=== PATIENT | male | born 1985 | race Caucasian/White ===

== ENCOUNTER 2019-08-24 12:21 | Emergency (ER) | payer OTHER ==
[~2019-08-24] VITALS: Ht 180.3 cm; Wt 90.7 kg
[~2019-08-24 12:21] MED LIST: ALLERGEN EAR DR15 M1 OT; BACTRIM DS TAB1 EACH PO; HYDROCODONE-APA1 TA1 PO; KEFLEX500 MG PO; NOHOMEMEDICATIONS; NORCO 5-325 TA1 EAC1 PO; PREVACID PO
[2019-08-24 13:40] LABS: INFLUENZA A ANTIGEN Negative (Negative); INFLUENZA B ANTIGEN Negative (Negative)
[2019-08-24 13:55] VITALS: BP 142/70
== END 2019-08-24 13:56 | disposition home or self-care (01) ==
LOC: M.ERS 12:21
PROVIDERS: Emergency Medicine Emergency Medical Services
DX: R05 Cough (principal); F95.2 Tourette's disorder; F17.210 Nicotine dependence, cigarettes, uncomplicated

== ENCOUNTER 2019-11-15 13:43 | Emergency (ER) | payer OTHER ==
[~2019-11-15] VITALS: Ht 180.3 cm; Wt 86.2 kg
[2019-11-15 14:34] LABS: ABSOLUTE BASOPHILS 0.1 thou/uL (0.0-0.2); ABSOLUTE EOSINOPHILS 0.3 thou/uL (0.0-0.7); ABSOLUTE LYMPHOCYTES 2.4 thou/uL (0.8-5.3); ABSOLUTE MONOCYTES 0.9 thou/uL (0.0-1.2); ABSOLUTE NEUTROPHILS 5.4 thou/uL (1.6-8.1); BASOPHILS 0.6 %; EOSINOPHILS 2.9 %; HEMATOCRIT 37.9 % (42.0-52.0); HEMOGLOBIN 13.4 gm/dL (14.0-18.0); LYMPHOCYTES 26.8 %; MCHC 35.5 g/dL (28.0-37.0); MCV 90.2 fL (80.0-100.0); MONOCYTES 10.4 %; MPV 7.2 fl. (7.2-11.1); NUCLEATED RBCS 0 /100WBC; PLATELET COUNT* 260 thou/uL (150-400); POLYS 59.3 %; RDW-CV 13.2 % (10.5-14.5); WBC 9.1 thou/uL (4.0-11.0)
[2019-11-15 14:40] LABS: CALCIUM 8.7 mg/dL (8.5-10.1); CREATININE 0.9 mg/dL (0.6-1.3)
[2019-11-15 14:45] LABS: ALBUMIN 3.4 g/dL (3.4-5.0); TOTAL BILIRUBIN 0.5 mg/dL (<0.1-1.0); TOTAL PROTEIN 6.7 g/dL (6.4-8.2)
[2019-11-15] MEDS ORDERED: MEDROLDOSEPACK PO (15:31)
[2019-11-15] MEDS ORDERED: MOBIC7.5 MG PO (15:31)
[2019-11-15] MEDS ORDERED: LIDODERM1 EACH TRANSDERM (15:37)
[2019-11-15 16:01] VITALS: BP 126/68
== END 2019-11-15 16:02 | disposition home or self-care (01) ==
LOC: M.ERS 13:43
PROVIDERS: Physician Assistant
DX: M54.6 Pain in thoracic spine (principal); R06.00 Dyspnea, unspecified; F17.210 Nicotine dependence, cigarettes, uncomplicated